=== PATIENT | male | born 1995 | race Caucasian/White ===

== ENCOUNTER 2018-03-04 20:10 | Emergency (ER) | payer MEDICAID ==
[2018-03-04] MEDS ORDERED: DIPHENHYDRAMINE HCL 50 MG CAPSULE PO ONE (22:58)
[2018-03-04] MEDS ORDERED: HYDROCODONE/ACETAMINOPHEN 5-325 MG (6 TAB/ER DISP) PO PRN (22:58)
[2018-03-04] MEDS ORDERED: KETOROLAC TROMETHAMINE 60 MG/2 ML SDV IM ONE (22:58)
--- NOTE | 2018-03-04 23:04 | ER Document Report ---
HPI - HPI Pain Level: 3 Notes: Patient is a 23-year-old male with a history of autism, bipolar, ADHD, OCD, ODD , anemia, asthma who presents to the ED with mother complaining of continued sinus pressure and frontal sinus headache times 1-1/2 weeks. Patient states that he was placed on Augmentin a week ago by his primary care provider which did improve his cough and nasal congestion overall. Patient states that he only coughs at nighttime now. Patient states that the headache will improve, but has not fully gone away. He denies any drug allergies. He has been eating and drinking without any difficulties. He is urinating normally and having normal bowel movements. Patient currently has a dull headache that does not radiate. This is not the worst headache of his life and he has had this before. Denies any fever, head injury, neck pain, changes in vision/speech/ mentation/hearing, chest pain, palpitations, syncope, shortness of breath, wheeze, dyspnea, abdominal pain, nausea/vomiting/diarrhea, urinary retention, dysuria, hematuria, loss of control of bowel or bladder, numbness/tingling, saddle anesthesia, muscle paralysis/weakness, or rash. - ROS Systems Reviewed and Negative: Yes All other systems reviewed and negative - CONSTITUTIONAL Constitutional: REPORTS: Chills. DENIES: Fever - EENT EENT: REPORTS: Sore Throat, Ear Pain. DENIES: Eye problems - NEURO Neurology: DENIES: Headache, Weakness, Vision blurred, Dizzinesss / Vertigo - CARDIOVASCULAR Cardiovascular: DENIES: Chest pain - RESPIRATORY Respiratory: DENIES: Trouble Breathing, Coughing - GASTROINTESTINAL Gastrointestinal: DENIES: Abdominal Pain, Black / Bloody Stools - URINARY Urinary: DENIES: Dysuria, Urgency, Frequency - MUSCULOSKELETAL Musculoskeletal: DENIES: Extremity pain Past Medical History - Social History Smoking Status: Never Smoker Chew tobacco use (# tins/day): No Drug Abuse: None Family History: Reviewed & Not Pertinent Patient has suicidal ideation: No Patient has homicidal ideation: No Pulmonary Medical History: Reports: Hx Asthma Renal/ Medical History: Denies: Hx Peritoneal Dialysis Psychiatric Medical History: Reports: Hx Attention Deficit Hyperactivity Disorder - Immunizations Immunizations up to date: Yes Hx Diphtheria, Pertussis, Tetanus Vaccination: Yes Vertical Provider Document - CONSTITUTIONAL Agree With Documented VS: Yes Notes: PHYSICAL EXAMINATION: GENERAL: Well-appearing, well-nourished and in no acute distress. A&Ox4. Answers questions appropriately. Moves comfortably w/o notable distress HEAD: Atraumatic, normocephalic. EYES: Pupils equal round and reactive to light, extraocular movements intact, sclera anicteric, conjunctiva are normal. ENT: EAC clear b/l. TM's intact b/l without erythema, fluid, or perforation. Nares patent and with scant clear discharge. oropharynx no erythema without exudates. tonsils absent. No palatine shift. Uvula midline. No tongue protrusion. No drooling, hoarseness, or airway compromise. Moist mucous membranes. + frontal sinus tenderness. NECK: Normal range of motion, supple without lymphadenopathy. No rigidity/ meningismus. LUNGS: Breath sounds clear to auscultation bilaterally and equal. No wheezes rales or rhonchi. No retractions HEART: Regular rate and rhythm without murmurs, rubs, gallops. ABDOMEN: Soft, nontender, nondistended abdomen. No guarding, no rebound. No masses appreciated. Normal bowel sounds present. No CVA tenderness bilaterally. No hepatosplenomegaly. NEUROLOGICAL: Cranial nerves grossly intact. Normal speech, normal gait. Normal sensory, motor exams PSYCH: Normal mood, normal affect. SKIN: Warm, Dry, normal turgor, no rashes or lesions noted. - INFECTION CONTROL TRAVEL OUTSIDE OF THE [place] IN LAST 30 DAYS: No Course - Re-evaluation Re-evalutation: 03/04/18 23:01 Patient is an afebrile, well-hydrated, 23-year-old male who presents to the ED with an acute sinusitis and sinus frontal headache. Vitals are acceptable without any significant tachycardia, tachypnea, or hypoxia. PE is otherwise unremarkable for any focal neurological deficits. Patient has reproducible tenderness to palpation of his frontal sinuses. He is nontoxic-appearing and is tolerating p.o. without difficulties. Toradol and Benadryl given today. No labs or imaging warranted at this time. Patient has almost completed his Augmentin which he may continue taking. Low suspicion for any acute glaucoma, temporal arteritis, meningitis, intracranial hemorrhage, ischemic stroke, or fracture at this time. Mother aware that his condition can change from initial presentation and that she needs to monitor symptoms closely for any acute changes. Conservative measures for symptoms. Recheck with your PCM in 2-3 days. Return to the ED with any worsening/concerning symptoms otherwise as reviewed in discharge. Mother and patient are in agreement. - Vital Signs Vital signs: Temp Pulse Resp BP Pulse Ox 98.6 F 64 18 139/81 H 100 03/04/18 20:40 03/04/18 20:40 03/04/18 20:40 03/04/18 20:40 03/04/18 20:40 Discharge - Discharge Clinical Impression: Acute sinusitis Qualifiers: Sinusitis location: frontal Recurrence: non-recurrent Qualified Code(s): J01.10 - Acute frontal sinusitis, unspecified Headache Qualifiers: Headache type: unspecified Headache chronicity pattern: acute headache Intractability: not intractable Qualified Code(s): R51 - Headache Condition: Stable Disposition: HOME, SELF-CARE Instructions: Sinusitis ([facility]), Headache ([facility]) Additional Instructions: Maintain adequate fluid intake Take meds as directed tylenol/ibuprofen as needed over the counter cold medication as needed for symptoms Humidified air may help Wash your hands regularly Wear a mask when coughing F/u: with your PCM in 2-3 days for a recheck Return to the ED with any fever, worsening pain, chest pain, palpitations, syncope, worsening TREVINO, neck pain/stiffness, shortness of breath, wheezing, drooling, trouble swallowing/breathing, abdominal pain, n/v/d, rash, or worsening/concerning symptoms otherwise. Forms: Elevated Blood Pressure Referrals: RUFINO BANGURA MD [Primary Care Provider] - 03/06/18
[2018-03-04 23:24] VITALS: BP 124/84
== END 2018-03-04 23:25 | disposition home or self-care (01) ==
LOC: ER 20:10
DX: J01.10 Acute frontal sinusitis, unspecified (principal); H92.09 Otalgia, unspecified ear; R51 Headache
CPT/HCPCS: 99283; 96372; J3490; J1885

== ENCOUNTER 2018-09-28 15:09 | Emergency (ER) | payer MEDICAID ==
--- NOTE | 2018-09-28 15:30 | ER Document Report ---
ED Medical Screen (RME) - General Chief Complaint: Hand Pain Stated Complaint: RIGHT HAND PAIN,SHAKY Time Seen by Provider: 09/28/18 15:28 Primary Care Provider: RUFINO BANGURA MD [Primary Care Provider] - Follow up as needed Mode of Arrival: Ambulatory Information source: Patient Notes: 23-year-old male presented to ED for complaint of cramping and not able to use his hand is normal. He states he has a history of scoliosis and multiple other medical problems but usually he can use his hand even though it cramps at times. He states since Saturday he has not been able to use his hand to do his schoolwork. Patient is alert oriented he is in the presence of his mother. His mother is his advocate. I have greeted and performed a rapid initial assessment of this patient. A comprehensive ED assessment and evaluation of the patient, analysis of test results and completion of medical decision making process will be conducted by an additional ED providers. TRAVEL OUTSIDE OF THE [place] IN LAST 30 DAYS: No - Related Data Allergies/Adverse Reactions: No Known Allergies Allergy (Unverified 08/02/14 13:48) Past Medical History Pulmonary Medical History: Reports: Hx Asthma Renal/ Medical History: Denies: Hx Peritoneal Dialysis Psychiatric Medical History: Reports: Hx Attention Deficit Hyperactivity Disorder - Immunizations Immunizations up to date: Yes Hx Diphtheria, Pertussis, Tetanus Vaccination: Yes Physical Exam - Vital signs Vitals: Temp Pulse Resp BP Pulse Ox 98.1 F 77 18 148/86 H 98 09/28/18 15:16 09/28/18 15:16 09/28/18 15:16 09/28/18 15:16 09/28/18 15:16 Course - Vital Signs Vital signs: Temp Pulse Resp BP Pulse Ox 98.1 F 77 18 148/86 H 98 09/28/18 15:16 09/28/18 15:16 09/28/18 15:16 09/28/18 15:16 09/28/18 15:16 Doctor's Discharge - Discharge Referrals: RUFINO BANGURA MD [Primary Care Provider] - Follow up as needed
[2018-09-28 16:16] LABS: ALANINE AMINOTRANSFERASE 28 U/L (21-72); ALBUMIN 4.9 g/dL (3.5-5.0); ALKALINE PHOSPHATASE 67 U/L (38-126); ANION GAP 15 (5-19); ASPARTATE AMINO TRANSFERASE 22 U/L (17-59); BILIRUBIN,DIRECT 0.2 mg/dL (0.0-0.4); BILIRUBIN,TOTAL 0.3 mg/dL (0.2-1.3); BLOOD UREA NITROGEN 10 mg/dL (7-20); CALCIUM 10.3 mg/dL (8.4-10.2); CARBON DIOXIDE 27 mmol/L (22-30); CHLORIDE 104 mmol/L (98-107); CREATINE KINASE 128 U/L (55-170); GLUCOSE 140 mg/dL (75-110); POTASSIUM 4.2 mmol/L (3.6-5.0); SODIUM 145.7 mmol/L (137-145); TOTAL PROTEIN 7.8 g/dL (6.3-8.2)
--- NOTE | 2018-09-28 18:42 | ER Document Report ---
ED General - General Chief Complaint: Hand Pain Stated Complaint: RIGHT HAND PAIN,SHAKY Time Seen by Provider: 09/28/18 15:28 Primary Care Provider: RUFINO BANGURA MD [Primary Care Provider] - Follow up as needed Mode of Arrival: Ambulatory Notes: Very pleasant 23-year-old male presents to the emergency department with chief complaint of cramping in his right hand. 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 Also there is been a few times where he has been writing doing homework in his hands cramped up and is he had to stop and take a break. He does have history of scoliosis and was also complaining of some right shoulder pain that radiates down to his arm. He is overall well-appearing. He denies fever, chills, nausea, vomiting, paresthesias, paralysis, shortness of breath or chest pain. No other complaints TRAVEL OUTSIDE OF THE [place] IN LAST 30 DAYS: No - Related Data Allergies/Adverse Reactions: No Known Allergies Allergy (Unverified 08/02/14 13:48) Past Medical History - General Information source: Patient - Social History Smoking Status: Never Smoker Frequency of alcohol use: None Drug Abuse: None Family History: Reviewed & Not Pertinent Patient has suicidal ideation: No Patient has homicidal ideation: No Pulmonary Medical History: Reports: Hx Asthma Renal/ Medical History: Denies: Hx Peritoneal Dialysis GI Medical History: Reports: Hx Gastroesophageal Reflux Disease Musculoskeletal Medical History: Reports Hx Arthritis Psychiatric Medical History: Reports: Hx Attention Deficit Hyperactivity Disorder Past Surgical History: Reports: Hx Oral Surgery, Hx Tonsillectomy - T&A - Immunizations Immunizations up to date: Yes Hx Diphtheria, Pertussis, Tetanus Vaccination: Yes Review of Systems - Review of Systems Constitutional: See HPI EENT: No symptoms reported Cardiovascular: See HPI Respiratory: See HPI Gastrointestinal: See HPI Genitourinary: No symptoms reported Male Genitourinary: No symptoms reported Musculoskeletal: No symptoms reported Skin: No symptoms reported Hematologic/Lymphatic: No symptoms reported Neurological/Psychological: See HPI Physical Exam - Vital signs Vitals: Temp Pulse Resp BP Pulse Ox 98.1 F 77 18 148/86 H 98 09/28/18 15:16 09/28/18 15:16 09/28/18 15:16 09/28/18 15:16 09/28/18 15:16 - Notes Notes: PHYSICAL EXAMINATION: Reviewed vital signs and charting by RN GENERAL: Alert, interacts well. No acute distress. HEAD: Normocephalic, atraumatic. EYES: Pupils equal and round. Extraocular movements intact. ENT: Oral mucosa moist, tongue midline. NECK: Full range of motion. Supple. Trachea midline. LUNGS: Clear to auscultation bilaterally, no wheezes, rales, or rhonchi. No respiratory distress. HEART: Regular rate and rhythm. No murmur ABDOMEN: soft, non-tender. Non-distended. Bowel sounds present. no McBurney's point tenderness, no Monte sign. EXTREMITIES: Moves all 4 extremities spontaneously. No edema, No cyanosis. Radial and ulnar nerve motor and sensory function intact. Normal distal neurovascular exam BACK: No CVAT NEUROLOGIC: Oriented and appropriate. Normal speech. PSYCH: Normal affect, normal mood. SKIN: Warm, dry, normal turgor. No rashes or lesions noted. Course - Re-evaluation Re-evalutation: 09/28/18 18:53 Presentation most consistent with either carpal tunnel syndrome or some type of nerve root pathology patient has history of scoliosis. Lab work was all very reassuring and magnesium was within normal limits. I gave patient a cock-up s plint that he can use. Told patient to take naproxen 500 mg twice daily for the next 7 to 10 days. I also told him he can take Tylenol 1000 mg every 6 hours as needed for pain to augment the naproxen. I told him to follow-up with Dr. Bangura in the next 1 to 2 weeks. He is safe and stable for discharge. - Vital Signs Vital signs: Temp Pulse Resp BP Pulse Ox 98.1 F 77 18 148/86 H 98 09/28/18 15:16 09/28/18 15:16 09/28/18 15:16 09/28/18 15:16 09/28/18 15:16 - Laboratory Result Diagrams: 09/28/18 15:39 Laboratory results interpreted by me: 09/28/18 15:39 Sodium 145.7 H Glucose 140 H Calcium 10.3 H Discharge - Discharge Clinical Impression: Wrist pain, right Condition: Good Disposition: HOME, SELF-CARE Additional Instructions: You were seen in the emergency department this afternoon for wrist pain. It is unclear if it is stemming from your scoliosis or it could potentially be related to carpal tunnel. Nonetheless all of your lab work looked good and everything is generally reassuring. Please take the Aleve 500 mg 2 times per day for at least the next 7 to 10 days with food or milk. You should also take Tylenol 1000 mg every 6 hours as needed to supplement for pain. Please follow-up with Dr. Bangura in the next 1 to 2 weeks to assess if you need to follow-up with your spine doctor or if this might be an aspect of carpal tunnel syndrome. If you do develop paralysis of your right arm, your hand starts to turn blue, you have severe excruciating shoulder elbow or arm pain, he develop high fevers, please immediately return to the emergency department. Referrals: RUFINO BANGURA MD [Primary Care Provider] - Follow up as needed
[2018-09-28 18:59] VITALS: BP 132/83
== END 2018-09-28 18:59 | disposition home or self-care (01) ==
LOC: ER 15:09
DX: M25.531 Pain in right wrist (principal); M79.641 Pain in right hand; M25.511 Pain in right shoulder; M79.601 Pain in right arm; J45.909 Unspecified asthma, uncomplicated
CPT/HCPCS: 99283; 36415; 82550; 83735; 80053; L3908